=== PATIENT | female | born 1970 | race Caucasian/White ===

== ENCOUNTER 2019-11-20 08:47 | Emergency (ER) | payer OTHER ==
--- NOTE | 2019-11-20 08:49 | PDOC ---
History of Present Illness - General Chief Complaint: Blood Pressure Problem Stated Complaint: headache,htn Time Seen by Provider: 11/20/19 08:48 - History of Present Illness Initial Comments: 11/20/19 09:05 Chief complaint: Elevated blood pressure HPI: Patient is maintained on lisinopril and amlodipine for high blood pressure. This is usually controlled in the 150/90 range. She ran out of her amlodipine 2 days ago. Today she noted that her blood pressure is elevated, she has a mild headache, and nausea. 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 This is causing difficulty sleeping. She recalls no specific injury. Denies chest pain, shortness of breath, abdominal pain, vomiting or diarrhea, hematemesis melena or bloody stool, visual or focal neurologic symptoms other than what appears to be sciatica in the left leg. There is been no fever/chills, URI symptoms, sore throat, cough, urinary tract symptoms including dysuria frequency urgency hesitancy or hematuria, vaginal bleeding or discharge. He is po stmenopausal for 7 years. Past medical history: High blood pressure, [id number] diabetes, diverticulitis 4 to 5 years ago, single episode, mild obesity. Medications: Lisinopril, amlodipine, metformin, and as needed Tylenol Social history: Denies tobacco alcohol or nonprescription drugs. Fully active and without disability except for the recent back pain/sciatica. Family history: Reviewed and noncontributory including early coronary artery disease, metabolic diseases including diabetes, and cancer Physical exam: Alert and oriented well-developed well-nourished mild distress due to headache and left leg pain. Cooperative Afebrile, vital signs normal except for elevated blood pressure in the 200/130 range. PERRLA 4 mm, fundi benign with sharp disc margins, good central venous pulsations, no hemorrhages or exudates. There is the suggestion of arteriolar narrowing but no AV nicking. EOMs full without diplopia. Visual hernandez intact to confrontation ENT clear Neck supple without bruit mass or nodes Lungs clear with full breath sounds bilaterally CV S1-S2 distant without murmur rub or gallop pulses full and symmetric no JVD or edema no bruits 88 and regular Abdomen nondistended. Bowel sounds normal. Soft without mass tenderness organomegaly. No CVAT Extremities no CCE. There is no posterior calf swelling or tenderness. There is no erythema and there are no skin changes in the lower extremities. As noted, pulses full and symmetric. No distal sensory or motor deficits. Straight leg raising is suggestive of sciatic nerve irritation with pain radiating down the posterior thigh and calf on the left. Skin clear, no rash, adequate turgor and wet mucous membranes Neurological C2 to 12 intact. Strength full and symmetric. No focal sensorimotor deficits. Gait stable and unimpaired. Cerebellar function intact Impression: Elevated blood pressure, most likely due to recent back pain and sciatica, as well as running out of her medications. No suggestion of acute cardiac or neurological event, but these are distant possibilities Plan: EKG and enzymes, chest x-ray, CBC and chemistries, symptomatic treatment and observation. Further evaluation and treatment depending on results. 11/20/19 09:16 Past History - Medical History Allergies/Adverse Reactions: Allergies Allergy/AdvReac Type Severity Reaction Status Date / Time No Known Allergies Allergy Verified 11/20/19 08:48 Home Medications: Ambulatory Orders Acetaminophen [Tylenol .Regular Strength -] 650 mg PO Q4H PRN #90 tablet 05/18/16 Metformin HCl [Glucophage] 1,000 mg PO DAILY 06/26/19 Amlodipine Besylate [Norvasc -] 10 mg PO DAILY #30 tablet 11/20/19 Lisinopril 20 mg PO DAILY 11/20/19 COPD: No Diabetes: Yes HTN: Yes - Immunization History Td Vaccination: No - Psycho-Social/Smoking History Smoking Status: No Smoking History: Never smoked Years of Tobacco Use: 0 Number of Cigarettes Smoked Daily: 0 ED Treatment Course - LABORATORY CBC & Chemistry Diagram: 11/20/19 09:32 11/20/19 09:32 Medical Decision Making - Medical Decision Making 11/20/19 10:21 EKG reviewed: No acute changes Chest x-ray reviewed: No sign of heart or lung disease on x-ray Laboratories reviewed: Glucose is 281. CK and troponin are normal. Remainder of chemistries and CBC without significant abnormalities Blood pressure much better controlled at 145/75, down from 225/128 Patient feels much better. Headache, nausea resolved completely. Sciatic pain is improved. Amlodipine refilled. Patient informed of elevated glucose, encouraged to follow-up with her primary physician in 2 to 3 days, for repeat blood pressure check and blood glucose. Modification of medication regimen may be necessary. Return to ER if further symptoms. Fully ambulatory and in no significant pain or other distress at discharge 11/20/19 10:25 Discharge - Discharge Information Problems reviewed: Yes Clinical Impression/Diagnosis: Elevated blood pressure reading Condition: Improved Disposition: HOME - Admission No - Additional Discharge Information Prescriptions: Amlodipine Besylate [Norvasc -] 10 mg PO DAILY #30 tablet - Follow up/Referral - Patient Discharge Instructions Patient Printed Discharge Instructions: DI for High Blood Pressure, DI for Back Pain With Sciatica Additional Instructions: Blood pressure was 225/128 initially, then with treatment reduced to 145/75. Blood glucose was 281 Please see your primary physician in 2 to 3 days for repeat blood pressure check and also blood sugar. A modification of your medication may be necessary. Until then, make sure to take your medication as directed. A refill of amlodipine has been sent to your pharmacy. Return to ER if any further symptoms develop. Otherwise follow-up as directed with primary physician Print Language: SINHALA - Post Discharge Activity Work/Back to School Note: Back to Work
[2019-11-20] MEDS ORDERED: ACETAMINOPHEN 1000 MG/100 ML VIAL (NON FORMULARY) IVPB ONE (09:00)
[2019-11-20] MEDS ORDERED: LABETALOL HCL 5 MG/1 ML (100MG/20 ML VIAL) IVPUSH ONE (09:00)
[2019-11-20] MEDS ORDERED: SODIUM CHLORIDE 500 ML IV STA (09:00)
[2019-11-20] MEDS ORDERED: ONDANSETRON 4 MG/2 ML VIAL IVPB ONE (09:00)
[2019-11-20 09:09] VITALS: TEMP 97.8; BMI 36.3
[2019-11-20] MEDS ORDERED: ACETAMINOPHEN INJECTION 100 ML IVPB ONE (09:10)
[2019-11-20] MEDS ORDERED: LABETALOL HCL 5 MG/1 ML (100MG/20 ML VIAL) ONE (09:11)
[2019-11-20] MEDS ORDERED: ONDANSETRON 4 MG/2 ML VIAL ONE (09:11)
[2019-11-20 09:48] LABS: BASO % 1.8 % (0-2.0); EOS % 2.7 % (0-4.5); HEMOGLOBIN 14.7 GM/dl (10.7-15.3); LYMPH % 41.5 % (8-40); MCHC 32.6 g/dl (32.0-36.0); MEAN CELL VOLUME 88.9 fl (80-96); MEAN PLT VOLUME 9.6 fl (7.5-11.1); MONO % 5.4 % (3.8-10.2); NEUT % 48.6 % (42.8-82.8); PLATELET COUNT 355 K/MM3 (134-434); RBC 5.06 M/mm3 (3.60-5.2); RDW 12.7 % (11.6-15.6); WHITE BLOOD COUNT 7.9 K/mm3 (4.0-10.8)
[2019-11-20] MEDS ORDERED: amLODIPine BESYLATE 10 MG TABLET (FP) PO ONE (09:51)
[2019-11-20 09:56] LABS: ALBUMIN 4.5 g/dl (3.4-5.0); BILIRUBIN,TOTAL 0.5 mg/dl (0.2-1); CALCIUM 9.5 mg/dl (8.5-10); CREATININE 0.5 mg/dl (0.55-1.3); POTASSIUM 3.7 mmol/L (3.5-5.1); TOT PROT 7.8 g/dl (6.4-8.2)
[2019-11-20] MEDS ORDERED: amLODIPine BESYLATE 5 MG TABLET (FP) ONE (10:06)
[2019-11-20 10:12] VITALS: BP 146/75; PULSE 72
[2019-11-20 12:40] LABS: EPITHELIAL CELLS FEW /hpf
--- NOTE | 2019-11-21 16:57 | EKG ---
Test Reason : Blood Pressure : / mmHG Vent. Rate : 065 BPM Atrial Rate : 065 BPM P-R Int : 164 ms QRS Dur : 096 ms QT Int : 472 ms P-R-T Axes : 052 -11 012 degrees QTc Int : 490 ms NORMAL SINUS RHYTHM PROLONGED QT ABNORMAL ECG WHEN COMPARED WITH ECG OF 14-MAY-2016 01:40, VENT. RATE HAS DECREASED BY 33 BPM Confirmed by YVONNE CORTES, RICARDO ([id number]) on 11/21/2019 4:57:25 PM Referred By: PJ BOYER Confirmed By:RICARDO RUSSELL MD
== END 2019-11-20 12:21 | disposition home or self-care (01) ==
LOC: FER 08:47
PROC: 3E033NZ Introduction of Analgesics, Hypnotics, Sedatives into Peripheral Vein, Percutaneous Approach (ICD-10-PCS; principal; 2019-11-20)
PROC: 3E033GC Introduction of Other Therapeutic Substance into Peripheral Vein, Percutaneous Approach (ICD-10-PCS; 2019-11-20)
PROC: 3E0337Z Introduction of Electrolytic and Water Balance Substance into Peripheral Vein, Percutaneous Approach (ICD-10-PCS; 2019-11-20)
DX: R03.0 Elevated blood-pressure reading, without diagnosis of hypertension (principal)
CPT/HCPCS: 36415; 71045-TC-FY; 80053; 81003; 81015; 82550; 84484; 85025; 93005; 99285-25; J0131

== ENCOUNTER 2021-12-05 22:26 | Emergency (ER) | payer OTHER ==
[2021-12-05 22:37] VITALS: BP 170/99; PULSE 100; RESP 18; TEMP 98.9; BMI 45.1
[2021-12-05] MEDS ORDERED: METOCLOPRAMIDE HCL INJECTION 10 MG/2 ML VIAL IM ONE (22:50)
[2021-12-05] MEDS ORDERED: ACETAMINOPHEN WITH CODEINE 300MG/30MG TABLET PO ONE (22:51)
[2021-12-05] MEDS ORDERED: ACETAMINOPHEN WITH CODEINE 300MG/30MG TABLET ONE (23:09)
[2021-12-05] MEDS ORDERED: METOCLOPRAMIDE HCL INJECTION 10 MG/2 ML VIAL ONE (23:09)
[2021-12-06] MEDS ORDERED: IBUPROFEN 600 MG TABLET (FP) PO ONE ×2 (00:04→00:53)
[2021-12-06] MEDS ORDERED: ASPIRIN 81 MG CHEWABLE TABLETS PO ONE (00:27)
[2021-12-06] MEDS ORDERED: ASPIRIN 81 MG CHEWABLE TABLETS ONE (00:52)
[2021-12-06 01:44] LABS: BASO % 0.5 % (0-2.0); EOS % 0.4 % (0-4.5); HEMATOCRIT 40.7 % (32.4-45.2); HEMOGLOBIN 13.6 GM/dL (10.7-15.3); LYMPH % 16.2 % (8-40); MCH 28.6 pg (25.7-33.7); MCHC 33.5 g/dl (32.0-36.0); MEAN CELL VOLUME 85.4 fl (80-96); MONO % 3.5 % (3.8-10.2); NEUT % 79.4 % (42.8-82.8); PLATELET COUNT 363 10^3/uL (134-434); RBC 4.77 M/mm3 (3.60-5.2); RDW 13.8 % (11.6-15.6); WHITE BLOOD COUNT 9.8 K/mm3 (4.0-10.0)
[2021-12-06 01:48] LABS: EPI CELLS 1 /uL (0-25.1); HYALINE CASTS 1 /uL (0-3.1); PH,URINE 7.5 (5.0-8.0); URINE APPEARANCE CLOUDY; URINE BACTERIA 323 /uL (0-1359); URINE BILIRUBIN NEGATIVE (NEGATIVE); URINE COLOR YELLOW; URINE GLUCOSE (UA) 2+ (NEGATIVE); URINE KETONE NEGATIVE (NEGATIVE); URINE LEUK ESTERASE 1+ (NEGATIVE); URINE NITRITE NEGATIVE (NEGATIVE); URINE PROTEIN NEGATIVE (NEGATIVE); URINE RBC 28 /uL (0-23.9); URINE UROBILINOGEN 0.2 mg/dL (0.2-1.0); URINE WBC 112 /uL (0-25.8)
[2021-12-06 01:50] LABS: INR 1.13 (0.83-1.09)
[2021-12-06 02:03] LABS: CALCIUM 9.4 mg/dL (8.5-10.1)
[2021-12-06 02:04] LABS: BLOOD UREA NITROGEN 12.2 mg/dL (7-18)
[2021-12-06 02:06] LABS: CREATININE 0.7 mg/dL (0.55-1.3)
[2021-12-06 02:08] LABS: BILIRUBIN,TOTAL 0.3 mg/dL (0.2-1); TOT PROT 7.8 g/dl (6.4-8.2)
[2021-12-06] MEDS ORDERED: CEPHALEXIN MONOHYDRATE 500 MG CAPSULE (UD) PO ONE (02:09)
== END 2021-12-06 02:46 | disposition home or self-care (01) ==
LOC: FER 22:26
PROC: 3E023GC Introduction of Other Therapeutic Substance into Muscle, Percutaneous Approach (ICD-10-PCS; principal; 2021-12-05)
DX: G44.209 Tension-type headache, unspecified, not intractable (principal); S33.9XXA Sprain of unspecified parts of lumbar spine and pelvis, initial encounter; Y99.9 Unspecified external cause status
CPT/HCPCS: 0241U-QW; 36415; 70450-TC; 70486-TC; 80053; 81003; 84484; 85025; 85610; 87086; 87186; 93005; 99285-25